=== PATIENT | female | born 1970 | race Caucasian/White ===

== ENCOUNTER → 2024-02-09 11:26 | Outpatient (BNVA) | payer MEDICARE, SELFPAY | PROVIDERS: PCP Obstetrics & Gynecology; Visit Provider Internal Medicine Rheumatology | DX: Z79.899 Other long term (current) drug therapy (principal); M19.90 Unspecified osteoarthritis, unspecified site; R76.8 Other specified abnormal immunological findings in serum; M47.898 Other spondylosis, sacral and sacrococcygeal region; M25.50 Pain in unspecified joint; J34.0 Abscess, furuncle and carbuncle of nose; R53.83 Other fatigue | CPT/HCPCS: 36415; 72202; 80076; 82306; 82565; 84439; 84443; 85025; 86021; 86036; 86160; 86162; 86200; 86235; 86255; 86376; 86800; 99204 ==

== ENCOUNTER → 2024-06-27 13:50 | Outpatient (BNVA) | payer MEDICARE, SELFPAY | PROVIDERS: PCP Obstetrics & Gynecology; Visit Provider Internal Medicine Rheumatology | DX: R76.8 Other specified abnormal immunological findings in serum (principal); M25.50 Pain in unspecified joint; J34.0 Abscess, furuncle and carbuncle of nose; R53.83 Other fatigue; Z86.39 Personal history of other endocrine, nutritional and metabolic disease; Z87.42 Personal history of other diseases of the female genital tract; Z79.899 Other long term (current) drug therapy | CPT/HCPCS: 36415; 80076; 82306; 82565; 85025; 85651; 86140; 99214 ==